=== PATIENT | female | born 1995 | race Caucasian/White ===

== ENCOUNTER 2022-03-25 15:49 | Outpatient (CLI) | payer OTHER | END 2022-03-25 17:56 | disposition home or self-care (01) | LOC: NST 15:49 | PROVIDERS: ATTEND Obstetrics & Gynecology | DX: Z34.82 Encounter for supervision of other normal pregnancy, second trimester (principal) ==

== ENCOUNTER 2022-06-16 13:30 | Inpatient (IN) | payer OTHER ==
[~2022-06-16] VITALS: Ht 149.9 cm; Wt 68.9 kg
[2022-06-18] MEDS ORDERED: PRENATAL + DHA1 EAC1 PO (16:31)
[2022-06-18] MEDS ORDERED: FOLIC ACID0.8 M1 PO (16:32)
[2022-06-21] MEDS ORDERED: KETO10TA2 PO (10:36)
[2022-06-21] MEDS ORDERED: OXYC1TAB9 PO (10:37)
== END 2022-06-21 11:22 | disposition home or self-care (01) | DRG 788 ==
LOC: LDR 06-18 12:07 → OB/GYN 06-19 19:59 → LDR 07-03 13:45
PROVIDERS: ADMIT Obstetrics & Gynecology Maternal & Fetal Medicine; ATTEND Obstetrics & Gynecology Maternal & Fetal Medicine
PROC: 10D00Z1 Extraction of Products of Conception, Low, Open Approach (ICD-10-PCS; principal; 2022-06-18)
PROC: 4A1HXCZ Monitoring of Products of Conception, Cardiac Rate, External Approach (ICD-10-PCS; 2022-06-18)
DX: O62.0 Primary inadequate contractions (principal); Z3A.38 38 weeks gestation of pregnancy; Z37.0 Single live birth; Z20.822 Contact with and (suspected) exposure to COVID-19

== ENCOUNTER 2022-07-04 03:05 | Inpatient (IN) | payer OTHER ==
[~2022-07-04] VITALS: Ht 160 cm; Wt 61.2 kg
[~2022-07-04 03:05] MED LIST: FOLIC ACID0.8 M1 PO; KETO10TA2 PO; OXYC1TAB9 PO; PRENATAL + DHA1 EAC1 PO
--- NOTE | 2022-07-04 03:39 | NUR ---
SE RECIBE PTE ALERTA Y ORIENTADA X3 LA CUAL REFIERE TENER SANGRADO VAGINAL. LA MISMA VERBALIZA QUE LE REALIZARON BANDAR CESARIA HACE [address] PADILLA.
--- NOTE | 2022-07-04 04:43 | NUR ---
PTE ALERTA,ESTABLE Y ORIENTADA.SE EDUCA SOBRE EL TRATAMIENTO QUE RECIBIRA EN EL HOSPITAL Y ESTA REFIERE ENTENDER.
== END 2022-07-06 10:42 | disposition home or self-care (01) | DRG 776 ==
LOC: ER 03:05 → OB/GYN 11:57
PROVIDERS: ADMIT Obstetrics & Gynecology; ATTEND Obstetrics & Gynecology
PROC: BU4CZZZ Ultrasonography of Uterus and Ovaries (ICD-10-PCS; principal; 2022-07-04)
PROC: BU4CZZZ Ultrasonography of Uterus and Ovaries (ICD-10-PCS; 2022-07-05)
DX: O72.1 Other immediate postpartum hemorrhage (principal); Z20.822 Contact with and (suspected) exposure to COVID-19

== ENCOUNTER 2022-07-08 06:35 | Inpatient (IN) | payer OTHER ==
[~2022-07-08] VITALS: Ht 149.9 cm; Wt 64.0 kg
--- NOTE | 2022-07-08 06:51 | NUR ---
PTE LLEGA A HEIDI DE EMERGENCIAS A LAS 0628AM. PTE ALERTA Y ORIENTADA X3 DEBIL. SE COLOCA PTE EN CAMA CON BARANDAS ELEVADAS CONECTADA A MONITOR CARDIACO Y OXIMETRIA. SE CANALIZA EN BRAZO DERECHO,MANO DERECHA Y MANO IZQUIERDA ANGIOS #18 AREAS LIBRES DE EDEMA Y DE ENROJECIMIENTO. SE LE ADMINISTRA R/L FULL DRIP ORDEN VERBAL DE . BUSCA EN LABORATORIO PRBC UNIVERSAL Y EL MISMO ADMINISTRA UNIDAD DE PADILLA UNIVERSAL. ORDENA ADMINISTRAR DOPAMINA 8MG/250ML BAJANDO A 6ML/HR. SE COLOCA CANULA NASAL A 3L. D/C R/L Y COLOCA .9NSS FULL DRIP. DA ORDENES VERBALES DE AZIZA MUESTRAS DE LAB. CBC, PTT,PT Y ORDENAR 4 UNIDADES DE PRBC PARA TRANSFUNDIR ORDEN MAKENNA A LAS 7:00AM.
--- NOTE | 2022-07-08 07:50 | NUR ---
SE TRASLADA PTE EN STEPHANIE CON BARANDAS ELEVADA A LA UNIDAD DE HEIDI DE OPERACIONES, EN COMPANIA DEL ESCOLTA Y FAMILIR, PTE CON MONITOR CARDIACO Y OXIMETRIA DE PULSO Y CON OXIGENO A 3LT, SE ENTREGA PTE A LA DONOVAN MYERS Y SE LE NOTIFICA QUE SE ENVIARON LOS TUBOS CARLOS A BANCO DE PADILLA.
== END 2022-07-11 10:24 | disposition home or self-care (01) | DRG 769 ==
LOC: ER 06:35 → O/R 07:07 → OB/GYN 07:07
PROVIDERS: Obstetrics & Gynecology; ADMIT Obstetrics & Gynecology Maternal & Fetal Medicine; ATTEND Obstetrics & Gynecology Maternal & Fetal Medicine
PROC: 0UDB7ZZ Extraction of Endometrium, Via Natural or Artificial Opening (ICD-10-PCS; principal; 2022-07-08 07:00)
PROC: 30233N1 Transfusion of Nonautologous Red Blood Cells into Peripheral Vein, Percutaneous Approach (ICD-10-PCS; 2022-07-09)
DX: O72.1 Other immediate postpartum hemorrhage (principal); O99.13 Other diseases of the blood and blood-forming organs and certain disorders involving the immune mechanism complicating the puerperium; D62 Acute posthemorrhagic anemia; O90.81 Anemia of the puerperium; D69.8 Other specified hemorrhagic conditions; Z20.822 Contact with and (suspected) exposure to COVID-19

== ENCOUNTER 2022-07-14 20:06 | Inpatient (IN) | payer OTHER ==
[~2022-07-14] VITALS: Ht 149.9 cm; Wt 63.5 kg
--- NOTE | 2022-07-14 20:10 | NUR ---
PACIENTE ALERTA Y ORIENTADO X3. REFIERE SANGRADO VAGINAL QUE LE COMENZO EN EL [facility] DE [facility]. LA PAICENTE TUVO BANDAR CESAREA HACE 3 SEMANAS Y UN RASPE HACE 3 ACEVES.
--- NOTE | 2022-07-14 20:23 | NUR ---
PTE EVALUADO POR DR. HARMAN SE EJECUTA ORDEN MEDICA EN WEN TOTALIDAD, SE BEATRIZ MUETSRA BAJO MEDIDAS ASEPTICAS Y SE ORIENTA A PTE SOBRE LA INTERVENCION. PTE FAMILIAR REFIEREN ENTENDER.
--- NOTE | 2022-07-14 20:57 | NUR ---
SE NOTIFICAN TUBOS PILOTOS PARA 3 UNIDADES A TRANSFUNDIR A MS GUPTA EN BANCO DE PADILLA DE AUXILIO MUTUO,PTE FIRMA PERMISO DE TRANSFUSION.SE ASISTE A DR PADILLA EN EXAMEN VAGINAL,SE UBICA EN AREA DE CRITICO,SE COLOCA MONITOR CARDIACO Y OXIMETRIA,SE REALIZA EKG,SE LE ADMINISTRAN MEDICAMENTOS CHELSEA ORDEN MEDICA.
--- NOTE | 2022-07-14 21:46 | NUR ---
SE RECIBE PTE ALERTA Y ORIENTADA X3 DE AREA DE OBSERVACION. PTE SE COLOCA EN CAMILL#3 DE UNIDAD DE CRITICO. PTE CONECTADA A MONITOR CARDIACO CON OXIMETRIA CONTINUA. PTE CON H/L X2 COLOCADOS, LIBRES DE EDEMA. PTE SE LE REQUIZAN 3 UNIDADES DE PRBC PARA TRANSFUNDIR. PTE PENDIENTE A RESULTADOS DE LABORATORIOS. PTE SE OBSERVA PALIDA Y CON DEBILIDAD. PTE SE CONTINUA MONITORIANDO POR CAMBIOS.
--- NOTE | 2022-07-14 23:13 | NUR ---
PACIENTE ALERTA Y ORIENTADA X3. ACOSTADA EN CAMA CON PIERNAS ELEVADAS POR HIPOTENSION, BARANDAS ELEVADAS Y INTERCOM ACCESIBLE. SE OBSERVA BUEN PATRON RESPIRATORIO. CONECTADA A MONITOR CARDIACO Y OXIMETRIA DE PULSO. ABDOMEN DEPRESIBLE AL TACTO. CANALIZACIONES EN BRAZO ABDULKADIR Y MANO IZQUIERDA PATENTE Y LIBRES DE EDEMA Y ERITEMA. RECIBIENDO 0.9% NSS DE 1,000ML BAJANDO A 100ML/HR. SE MANTIENE BAJO OBSERVACION POR CAMBIOS SIGNIFICATIVOS. PACIENTE CON BP 88/53MMHG. SE COMIENZA A BAJAR 0.9% NSS DE 250ML FULL DRIP. SE MONIOTREA S/V DE LA PACIENTE.
--- NOTE | 2022-07-14 23:15 | NUR ---
HERO REFIERE QUE LA PACIENTE TIENE MALDONADO UNIDADES DE PRBC EN HOLD AL MOMENTO.
--- NOTE | 2022-07-15 02:00 | NUR ---
SE NOTIFICA VIA TELEFONICA A DR. RANDY MCKEE EN 8.4 Y SE LE PREGUNTA SI DESEA COMENZAR A TRANSFUNDIR A LA PACIENTE LAS UNIDADES EN HOLD. MEDICO REFIERE QUE NO AL MOMENTO.
--- NOTE | 2022-07-15 06:28 | NUR ---
PACIENTE ALERTA Y ORIENTADA X3. SE OFRECE CAMBIO DE PANAL A LAS 4:00AM PACIENTE CON LEVE SANGRADO VAGINAL COLOR RICHARDSON INTENSO. 5:11AM PACIENTE SE ROBERTA MEDICAMENTO ORDENADO POR MD. A LAS 5:44AM SE BEATRIZ MUESTRA DE LABORATORIO ORDENADA POR MD BAJO MEDIDA ASEPTICA. A LAS 6:27AM SE AMDINISTRA MEDICAMENTO ORDENADO POR .
--- NOTE | 2022-07-15 09:02 | NUR ---
7:00AM: SE RECIBE PACIENTE DEL TURNO ANTERIOR, ALERTA Y ORIENTADA X3, LA MISMA SE ENCUENTRA UBICADA EN CAMA CON BARANDAS ELEVADAS POR PRECAUCION A CAIDAS, SE OBSERVA PACIENTE CONECTADA A MONITOR CARDIACO Y OXIMETRIA DE PULSO. PACIENTE CANALIZADA EN BRAZO ABDULKADIR CON ANGIO # 18, EL MISMO SE ENCUENTRA PATENTE AMALIA DE EDEMA Y ERITEMA BAJANDO 0.9% NSS A 100ML/HR. SE MANTIENE PACIENTE BAJO OBSERVACION POR CAMBIOS EN [place] MEDICO
== END 2022-07-17 13:13 | disposition home or self-care (01) | DRG 776 ==
LOC: ER 20:06 → SEC-K 07-15 09:10 → OB/GYN 07-15 09:10
PROVIDERS: ADMIT Obstetrics & Gynecology; ATTEND Obstetrics & Gynecology
PROC: BW4GZZZ Ultrasonography of Pelvic Region (ICD-10-PCS; principal; 2022-07-15)
PROC: BW3GYZZ Magnetic Resonance Imaging (MRI) of Pelvic Region using Other Contrast (ICD-10-PCS; 2022-07-16)
PROC: BW3GZZZ Magnetic Resonance Imaging (MRI) of Pelvic Region (ICD-10-PCS; 2022-07-16)
DX: O90.81 Anemia of the puerperium (principal); Z20.822 Contact with and (suspected) exposure to COVID-19
CPT/HCPCS: 72198

== ENCOUNTER 2022-07-21 19:14 | Inpatient (IN) | payer OTHER ==
[~2022-07-21] VITALS: Ht 149.9 cm; Wt 59.0 kg
--- NOTE | 2022-07-21 19:35 | NUR ---
PTE VERBALIZA QUE VIENE POR ANEMIA Y DE [facility]. PTE SE OBSERVA A/O X4.
== END 2022-07-30 12:37 | disposition home or self-care (01) | DRG 769 ==
LOC: ER 19:14 → OB/GYN 19:44
PROVIDERS: Anesthesiology Pain Medicine; Obstetrics & Gynecology; ADMIT Obstetrics & Gynecology Gynecology; ATTEND Obstetrics & Gynecology Gynecology
PROC: BU4CZZZ Ultrasonography of Uterus and Ovaries (ICD-10-PCS; 2022-07-24)
PROC: BU4CZZZ Ultrasonography of Uterus and Ovaries (ICD-10-PCS; 2022-07-24)
PROC: 0UT70ZZ Resection of Bilateral Fallopian Tubes, Open Approach (ICD-10-PCS; principal; 2022-07-27 18:00)
PROC: 0UT90ZZ Resection of Uterus, Open Approach (ICD-10-PCS; 2022-07-27 18:00)
PROC: 30233N1 Transfusion of Nonautologous Red Blood Cells into Peripheral Vein, Percutaneous Approach (ICD-10-PCS; 2022-07-28)
DX: O72.1 Other immediate postpartum hemorrhage (principal); D62 Acute posthemorrhagic anemia; N72 Inflammatory disease of cervix uteri; Z20.822 Contact with and (suspected) exposure to COVID-19; N39.8 Other specified disorders of urinary system